=== PATIENT | female | born 1990 | race African-American/Black ===

== ENCOUNTER 2018-09-20 07:48 | Emergency (ER) | payer MEDICAID ==
[~2018-09-20] VITALS: Ht 162.6 cm; Wt 56.7 kg
[~2018-09-20 07:48] MED LIST: [UNRECOGNIZED DRUG - CODE]
[2018-09-20] MEDS: SODIUM CHLORIDE 0.9% 1,000 ML IVB ONE (09:02)
[2018-09-20 09:05] LABS: Basophils # (auto) 0 uL; Basophils % (auto) 0.6 % (0.0-2.0); Eosinophils # (auto) 0 uL; Eosinophils % (auto) 0.8 % (0.0-7.0); Lymphocytes # (auto) 0.8 uL; Mean Corpuscular Hemoglobin 26.6 pg (28.0-32.0); Neutrophils # (auto) 4.6 uL
[2018-09-20 09:06] LABS: Hemoglobin 11.9 g/dL (12.2-16.2); Lymphocytes % (auto) 13.4 % (10.0-50.0); Mean Corpuscular Hgb Conc. 32.3 g/dL (32.0-36.0); Mean Corpuscular Volume 82.3 fL (80.0-100.0); Monocytes # (auto) 0.5 uL; Monocytes % (auto) 8.2 % (0.0-12.0); Platelet Count (auto) 314 10^3/uL (140-450); Red Blood Cells 4.49 10^6/uL (4.0-5.20); Red Cell Distribution Width 16.2 % (11.8-14.3)
[2018-09-20] MEDS: KETOROLAC TROMETH 30 MG/ML 1ML VIAL IV ONE (09:12)
[2018-09-20] MEDS: PROMETHAZINE HCL 25 MG/ML 1ML IV PRN (09:13)
[2018-09-20 09:21] LABS: Albumin 3.9 g/dL (3.4-5.0); BUN/Creatinine Ratio 15.8; Calcium 8.7 mg/dL (8.5-10.1); Magnesium 2.1 mg/dL (1.6-2.6); Potassium 3.2 mmol/L (3.5-5.1)
[2018-09-20 09:23] LABS: Amphetamine Screen, Urine POSITIVE (NEGATIVE); Barbiturate Scree,Urine NEGATIVE (NEGATIVE); Benzodiazephine Screen, Urine NEGATIVE (NEGATIVE); Cannabinoid Screen, Urine POSITIVE (NEGATIVE); Cocaine Screen, Urine NEGATIVE (NEGATIVE); Opiate Scree,Urine NEGATIVE (NEGATIVE); Phencyclidine Screen, Urine NEGATIVE (NEGATIVE)
[2018-09-20 09:23] LABS: Bilirubin, Total 0.5 mg/dL (0.2-1.0)
[2018-09-20 09:24] LABS: Urine Bacteria FEW /hpf (None Seen); Urine Blood Negative /uL (Negative); Urine Mucus MANY (None Seen); Urine Specific Gravity 1.028 (1.001-1.035); Urine WBC 10 /hpf (0 - 5)
[2018-09-20 09:36] LABS: Thyroid Stimulating Hormone 0.07 uIU/mL (0.358-3.74)
[2018-09-20] MEDS: DEXTROSE (50%) 50ML SYRG IV ONE (09:52)
[2018-09-20] MEDS: cefTRIAXone 1GM/50ML D5W 50 ML IV ONE (11:13)
[2018-09-20] MEDS: POTASSIUM CHL 10% (20 MEQ/15ML) 15ml ORAL SOLN PO ONE (11:39)
[2018-09-20 13:27] VITALS: BP 104/65
== END 2018-09-20 14:20 | disposition home or self-care (01) ==
LOC: EDBD 07:48 → ER 07:53
DX: O21.0 Mild hyperemesis gravidarum (principal); O23.41 Unspecified infection of urinary tract in pregnancy, first trimester; O99.281 Endocrine, nutritional and metabolic diseases complicating pregnancy, first trimester; E05.90 Thyrotoxicosis, unspecified without thyrotoxic crisis or storm; Z3A.01 Less than 8 weeks gestation of pregnancy; E87.6 Hypokalemia; F12.10 Cannabis abuse, uncomplicated; F15.10 Other stimulant abuse, uncomplicated
CPT/HCPCS: 36415; 76801; 80053; 80307; 81001; 81025; 82962; 83690; 83735; 84443; 84702; 85025; 96361; 96365; 96375; 99284; J0696; J1885; J2550; J7030; J7042

== ENCOUNTER 2019-04-03 14:00 | Inpatient (IN) | payer MEDICAID, OTHER ==
[~2019-04-03] VITALS: Ht 154.9 cm; Wt 53.5 kg
[2019-04-03] MEDS: LACTATED RINGER'S 1,000 ML IV SCH ×3 (15:00→23:17)
[2019-04-03] MEDS ORDERED: PROMETHAZINE HCL 25 MG/ML 1ML IV PRN (15:15)
[2019-04-03] MEDS ORDERED: WITCH HAZEL-GLYCERIN PAD TOP PRN (15:15)
[2019-04-03] MEDS ORDERED: LIDOCAINE 2% (LOCAL ANESTH.) PF 5ml SDV IJ ONE (15:15)
[2019-04-03] MEDS ORDERED: METHYLERGONOVINE MALEATE 0.2 MG/ML AMP IM ONE ×3 (15:15→20:00)
[2019-04-03] MEDS ORDERED: PHISODERM TOP SOLN 240ML BTL TOP ONE (15:15)
[2019-04-03] MEDS ORDERED: DERMOPLAST 60ML BOTTLE TOP PRN (15:15)
[2019-04-03] MEDS ORDERED: NALBUPHINE HCL 10 MG/1ml INJECTION IV PRN (15:15)
[2019-04-03] MEDS ORDERED: LACT. RINGERS/OXYTOCIN 20UNITS 1,000 ML IV SCH ×2 (15:17→20:50)
[2019-04-03] MEDS ORDERED: PENICILLIN G POT 5MIL/D5 50ML 50 ML IV ONE (15:30)
[2019-04-03] MEDS ORDERED: TERBUTALINE SULFATE 1 MG/ML 1ML VIAL SC ONE (15:30)
[2019-04-03] MEDS: PENICILLIN G POTASSIUM 2,500,000 UNITS in D5W 5% 50 ML IV SCH ×2 (15:45→19:30)
[2019-04-03 15:47] LABS: Eosinophils # (auto) 0 uL; Lymphocytes % (auto) 12.9 % (10.0-50.0); Monocytes # (auto) 0.4 uL; Neutrophils # (auto) 6.1 uL; White Blood Cell 7.5 10^3/uL (4.4-10.8)
[2019-04-03 15:49] LABS: Urine Bacteria NONE SEEN /hpf (None Seen); Urine Blood Negative /uL (Negative); Urine Hyaline Cast FEW /lpf (0 - 2); Urine Mucus FEW (None Seen); Urine Specific Gravity 1.028 (1.001-1.035); Urine WBC 12 /hpf (0 - 5)
[2019-04-03 15:49] LABS: Basophils # (auto) 0.1 uL; Basophils % (auto) 0.8 % (0.0-2.0); Eosinophils % (auto) 0.1 % (0.0-7.0); Hematocrit 23.9 % (36.0-46.0); Hemoglobin 7.4 g/dL (12.2-16.2); Mean Corpuscular Hemoglobin 22.3 pg (28.0-32.0); Mean Corpuscular Hgb Conc. 30.9 g/dL (32.0-36.0); Mean Corpuscular Volume 72.3 fL (80.0-100.0); Neutrophils % (auto) 81.2 % (37.0-80.0); Nucleated Red Blood Cells % 0.2 %; Platelet Count (auto) 197 10^3/uL (140-450); Red Cell Distribution Width 15.8 % (11.8-14.3)
[2019-04-03 15:59] LABS: INR < 0.93 (0.9-1.15); Partial Thromboplastin Time 25.7 sec (23.64-32.05)
[2019-04-03 16:01] LABS: Albumin 2.4 g/dL (3.4-5.0); BUN/Creatinine Ratio 11.9; Potassium 3.3 mmol/L (3.5-5.1); Uric Acid 4.7 mg/dL (2.6-6.0)
[2019-04-03 16:03] LABS: Alcohol, Urine < 3.0 mg/dL (0-5); Amphetamine Screen, Urine POSITIVE (NEGATIVE); Barbiturate Scree,Urine NEGATIVE (NEGATIVE); Benzodiazephine Screen, Urine NEGATIVE (NEGATIVE); Cannabinoid Screen, Urine POSITIVE (NEGATIVE); Cocaine Screen, Urine NEGATIVE (NEGATIVE); Opiate Scree,Urine NEGATIVE (NEGATIVE); Phencyclidine Screen, Urine NEGATIVE (NEGATIVE)
[2019-04-03 16:04] LABS: Bilirubin, Total 0.4 mg/dL (0.2-1.0); Total Protein 6.5 g/dL (6.4-8.2)
[2019-04-03 17:43] VITALS: BP 104/56
[2019-04-03] MEDS ORDERED: LIDOCAINE 2%HCL (LOCAL ANESTH.) INJ 20ML MDV ONE (18:13)
[2019-04-03] MEDS ORDERED: SODIUM CHLORIDE 0.9% 1,000 ML IV SCH (18:30)
--- NOTE | 2019-04-03 18:55 | NUR ---
Blood Transfusion End: Vitals stable WNL. No signs of distress.
[2019-04-03] MEDS ORDERED: CARBOPROST TROMETHAMINE 250 MCG/1ML VIAL IM ONE (20:00)
[2019-04-03] MEDS ORDERED: ACETAMINOPHEN 325 MG TAB PO PRN (20:00)
[2019-04-03] MEDS: IBUPROFEN 600 MG TAB PO PRN (20:09)
--- NOTE | 2019-04-03 21:30 | NUR ---
Ambulation: Patient OOB with standby assistance by RN. Patient ambulated to bathroom with steady gait. [facility] teaching provided with returned demonstration by patient. Clean gown provided and bed linen changed. PT verbalizes she feels weak. PT taken back to bed via wheelchair.
[2019-04-04] MEDS ORDERED: PREN-96 PO (00:13)
[2019-04-04] MEDS ORDERED: ONDANSETRON HCL 4 MG/2 ML VIAL IV PRN (01:00)
[2019-04-04 03:30] VITALS: BP 103/53
[2019-04-04 07:10] VITALS: BP 118/57
[2019-04-04] MEDS: IBUPROFEN 600 MG TAB PO PRN ×2 (07:17→18:36)
[2019-04-04 08:55] LABS: Eosinophils # (auto) 0 uL; Lymphocytes # (auto) 1.4 uL; Red Blood Cells 4.36 10^6/uL (4.0-5.20); White Blood Cell 16.1 10^3/uL (4.4-10.8)
[2019-04-04 08:57] LABS: Basophils # (auto) 0.1 uL; Basophils % (auto) 0.5 % (0.0-2.0); Hematocrit 32.4 % (36.0-46.0); Hemoglobin 10.1 g/dL (12.2-16.2); Lymphocytes % (auto) 8.9 % (10.0-50.0); Mean Corpuscular Hemoglobin 23.2 pg (28.0-32.0); Mean Corpuscular Hgb Conc. 31.3 g/dL (32.0-36.0); Mean Corpuscular Volume 74.3 fL (80.0-100.0); Monocytes # (auto) 0.7 uL; Monocytes % (auto) 4.6 % (0.0-12.0); Neutrophils # (auto) 13.8 uL; Nucleated Red Blood Cells % 0.2 %; Platelet Count (auto) 186 10^3/uL (140-450); Red Cell Distribution Width 16.7 % (11.8-14.3)
--- NOTE | 2019-04-04 09:10 | NUR ---
Called Dr Jo via cell phone to relay lab result; HGB 10.1/HCT 32.4, WBC 16.1; orders received to continue current plan of care.
[2019-04-04 11:00] VITALS: BP 111/59
[2019-04-04 15:00] VITALS: BP 111/54
--- NOTE | 2019-04-04 15:00 | NUR ---
HÉCTOR on unit demanding information on ; Patient states that she has an active restraining order against HÉCTOR Stearns, and he is not authorized to receive any information at this time. Security escorted Mr Benavides off of the unit and he is not welcome back at this time.
--- NOTE | 2019-04-04 15:19 | NUR ---
D/C Planning Per SS consult for positive methamphetamines, pos THC positive meth. CRISTO Guzman advised me shift boss CRISTO Cameron reported to CPS las night 04/03/19 and stated CPS and officer was at bedside this morning to put a hold on baby. Pt was emotional distress and was unable to participate in an assessment. Khadra from CPS was at bedside putting a hold on baby boy. Informed CRISTO Guzman. Per second SS consult pt does not have a permanent residence. Spoke to Pt at bedside regarding living situation. Pt stated she is not homeless and will be returning back to the hotel 6 on in [place] or to a friend house. 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 Pt stated she has two other children who she has no custody of. Pt stated her parents have full custody of her to youngest children. Pt requested resources and was given to Pt at bedside for (drug and alcohol programs, mental health centers, department of social service and food [place]). Pt stated she has [place] Id and licence and Social security card. Informed CRISTO Guzman.
[2019-04-04 19:00] VITALS: BP 91/67
[2019-04-04 22:40] VITALS: BP 113/69
[2019-04-05 03:27] VITALS: BP 113/59
[2019-04-05 06:06] LABS: Rubella Antibodies, IgG <0.90 index (Immune >0.99)
[2019-04-05] MEDS: LACTATED RINGER'S 1,000 ML IV SCH (06:30)
[2019-04-05 06:32] VITALS: BP 114/61
--- NOTE | 2019-04-05 07:01 | NUR ---
Discharge: Discharge instructions given as ordered. Pt encouraged to follow up with [facility] as instructed. All questions and concerns addressed. Patient verbalized understanding. Medication reconciliation completed and copy given to patient. Patient refused vaccines t-dap, influenza, MMR and is aware she is non-immune. Patient encouraged to prepare to depart unit.
[2019-04-05 07:06] LABS: RPR Non Reactive (Non Reactive)
--- NOTE | 2019-04-05 08:45 | NUR ---
TAXI VOUCHER GIVEN BY [facility] DIRECTOR . CALLED AND SPOKE WITH CLEARING DISTRIBUTION CLERK ETA 1 HOUR.
--- NOTE | 2019-04-05 08:55 | NUR ---
SIDRA LÓPEZ LEAD SLOT TECHNICIAN CALL IN MEDICATION MOTRIN 600 MG/PO/PRN FOR PAIN Q6 HOURS TIMES 28 TABS/ NO RE-FILLS. CALLED [facility] AND SPOKE WITH XANDER PHARMACIST. DMITRY
--- NOTE | 2019-04-05 09:27 | NUR ---
CANCELLED TAXI PER PATIENT REQUEST. PATIENT STATES HER FAMILY MEMBER IS ON THE WAY TO GET HER NOW.
--- NOTE | 2019-04-05 10:18 | NUR ---
Discharge: Patient taken to vehicle via ambulation with all personal belongings, accompanied by staff and family member. No distress noted at time of departure, no adverse changes in status since initial assessment.
== END 2019-04-05 10:18 | disposition home or self-care (01) | DRG 560 ==
LOC: ER 14:00 → LDRP 14:20 → MERGE 14:40 → OBSVTOIN 14:40 → LDRP 15:03
PROVIDERS: ADMIT Obstetrics & Gynecology; ATTEND Obstetrics & Gynecology
PROC: 10D07Z6 Extraction of Products of Conception, Vacuum, Via Natural or Artificial Opening (ICD-10-PCS; principal; 2019-04-03)
PROC: 30233N1 Transfusion of Nonautologous Red Blood Cells into Peripheral Vein, Percutaneous Approach (ICD-10-PCS; 2019-04-03)
DX: O99.02 Anemia complicating childbirth (principal); O99.324 Drug use complicating childbirth; Z37.0 Single live birth; Z3A.35 35 weeks gestation of pregnancy; F15.90 Other stimulant use, unspecified, uncomplicated; F12.90 Cannabis use, unspecified, uncomplicated
CPT/HCPCS: 36415; 36430; 59025; 59409; 80053; 80307; 81001; 84112; 84550; 85025; 85610; 85730; 86592; 86762; 86790; 86850; 86900; 86901; 86920; 87340; 96365; 96366; 96372; G0378; J2405; J2540; J2590; J7060

== ENCOUNTER 2022-03-17 15:58 | Emergency (ER) | payer MEDICAID ==
[~2022-03-17] VITALS: Ht 154.9 cm; Wt 48.6 kg
[~2022-03-17 15:58] MED LIST changes: +PREN-96 PO
[2022-03-17 16:36] VITALS: BP 114/79
[2022-03-17] MEDS ORDERED: IBUP600T27 PO (17:38)
[2022-03-17] MEDS ORDERED: SILVER SULFADIAZINE 1 % TOPICAL CREAM 50GM TOP ONE (17:45)
== END 2022-03-17 18:05 | disposition home or self-care (01) ==
LOC: ER 15:58
DX: T23.101A Burn of first degree of right hand, unspecified site, initial encounter (principal); F17.210 Nicotine dependence, cigarettes, uncomplicated; Z79.1 Long term (current) use of non-steroidal anti-inflammatories (NSAID); Z79.899 Other long term (current) drug therapy; Z91.018 Allergy to other foods; X19.XXXA Contact with other heat and hot substances, initial encounter; Y93.89 Activity, other specified; Y92.89 Other specified places as the place of occurrence of the external cause; Y99.8 Other external cause status
CPT/HCPCS: 16000